=== PATIENT | male | born 1970 | race American Indian/Alaskan Native ===

== ENCOUNTER 2020-08-27 17:44 | Emergency (ER) | payer SELFPAY ==
--- NOTE | 2020-08-27 18:44 | Event Note ---
ED Screening Note Date of service: 08/27/20 Time: 18:43 ED Screening Note: 50-year-old -Greek male presents to the emergency room complaining of shortness of breath bilateral lower extremity edema x1 month.. Patient reports he went to the ER at [facility] on [facility] had blood work IV. Patient states he gave him prescription for Lasix but he did not get filled secondary to not knowing how much it would cost. Reports he has an appointment with his primary care provider on Saturday. This initial assessment/diagnostic orders/clinical plan/treatment(s) is/are subject to change based on patients health status, clinical progression and re- assessment by fellow clinical providers in the ED. Further treatment and workup at subsequent clinical providers discretion. Patient/guardian urged not to elope from the ED as their condition may be serious if not clinically assessed and managed. Initial orders include:
[2020-08-27 19:11] LABS: Basophils # (Auto) 0.1 K/mm3 (0.0-0.1); Basophils % (Auto) 0.9 % (0.0-1.8); Eosinophils # (Auto) 0.1 K/mm3 (0.0-0.4); Eosinophils % (Auto) 1.1 % (0.0-4.3); Hematocrit 30.1 % (35.5-45.6); Hemoglobin 10.4 gm/dl (11.8-15.2); Lymphocytes # (Auto) 1.2 K/mm3 (1.2-5.4); Lymphocytes % (Auto) 16.8 % (13.4-35.0); Mean Corpuscular HGB Conc 35 % (32-34); Mean Corpuscular Volume 88 fl (84-94); Monocytes # (Auto) 0.8 K/mm3 (0.0-0.8); Platelet Count 393 K/mm3 (140-440); Red Cell Distribution Width 13.9 % (13.2-15.2)
--- NOTE | 2020-08-27 19:20 | XRay Report ---
CHEST 2 VIEWS INDICATION / CLINICAL INFORMATION: sob,cough and rales. COMPARISON: None available. FINDINGS: SUPPORT DEVICES: None. HEART / MEDIASTINUM: No significant abnormality. LUNGS / PLEURA: Clear lungs. No significant pleural effusion. No pneumothorax. ADDITIONAL FINDINGS: No significant additional findings. IMPRESSION: 1. No significant abnormality of the chest. Signer Name: Los Mathur MD Signed: 08/27/2020 7:15 PM Workstation Name: [id number]
[2020-08-27 19:32] LABS: Alanine Aminotransferase 20 units/L (7-56); Albumin 3.5 g/dL (3.9-5); BUN/Creatinine Ratio 11; Blood Urea Nitrogen 15 mg/dL (9-20); Calcium 9.2 mg/dL (8.4-10.2); Hemolysis Index 0
[2020-08-27 20:51] VITALS: BP 138/83
--- NOTE | 2020-08-27 21:24 | Emergency Department Report ---
ED Extremity Problem HPI - General Chief complaint: Extremity Injury, Lower Stated complaint: FLUIDS ON LEGS/PAIN Time Seen by Provider: 08/27/20 20:50 Source: patient Mode of arrival: Ambulatory Limitations: No Limitations - History of Present Illness Initial comments: 50-year-old male presents to ED for bilateral lower extremity swelling x1 month. Patient states he has been seen at the [facility] ED twice. Patient states he was seen 1 week ago the ED by a [facility] physician who informed him that they would try to schedule an appointment with his PCP, Dr. Simms, at [facility]. He was told to return to the ED if he had not received a call from their office earlier this week. Patient states he did not receive a call for an appointment, so he returned to [facility] on yesterday. Patient states he was given a prescription for Lasix, that he has not yet filled. He reports he did not know that the Lasix was supposed to help recent swelling in his legs, so he did not get it filled. Patient presents to our ED tonight because his legs are still swollen and painful. Patient denies a history of CHF. Patient denies any chest pain or shortness of breath. Denies any fever. 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 Patient is currently under the care of a putty worker which he has a follow-up appointment with in 3 days. Patient reports he was admitted to [facility] in [facility] for Covid. He reports he was discharged toward the end of July. He states at that time he had ultrasound on his legs which were negative for blood clots. He reports he was being given antibiotics for cellulitis at that time. Patient states he was not discharged with any antibiotics and he is not currently on any antibiotic therapy. MD Complaint: extremity pain, extremity swelling -: month(s) (1) Location: bilateral lower extremity -: No fever, No associated dyspnea, No associated chest pain Quality: aching Consistency: constant Improves with: nothing Worsens with: palpation Associated Symptoms: denies: chest pain, shortness of breath, fever - Related Data Home Medications Medication Instructions Recorded Confirmed Last Taken Ibuprofen [Motrin] 800 mg PO BID 02/08/14 02/08/14 02/08/14 13:00 Previous Rx's Medication Instructions Recorded Last Taken Type HYDROcodone/APAP 7.5-325 [[place] 1 each PO Q6HR PRN #14 tablet 02/08/14 Unknown Rx 7.5/325 mg] Insulin Glargine,Hum.rec.anlog 30 units SQ HS #10 ml 02/08/14 Unknown Rx [Lantus] Sulfamethoxazole/Trimethoprim 1 each PO BID #20 tablet 02/08/14 Unknown Rx [Bactrim Ds] glipiZIDE [glipiZIDE XL] 20 mg PO DAILY #30 tab.er.24 02/08/14 Unknown Rx metFORMIN [Glucophage] 500 mg PO DAILY #60 tablet 02/08/14 Unknown Rx Sulfamethoxazole/Trimethoprim 1 each PO BID 7 Days #14 tablet 08/27/20 Unknown Rx [Bactrim DS TAB] cephALEXin [Keflex] 500 mg PO Q12HR 7 Days #14 cap 08/27/20 Unknown Rx traMADoL [Ultram] 50 mg PO Q6HR PRN #7 tablet 08/27/20 Unknown Rx Allergies Allergy/AdvReac Type Severity Reaction Status Date / Time No Known Allergies Allergy Unverified 02/08/14 13:55 ED Review of Systems ROS: Stated complaint: FLUIDS ON LEGS/PAIN Other details as noted in HPI Comment: All other systems reviewed and negative Constitutional: denies: chills, fever Respiratory: denies: shortness of breath Cardiovascular: denies: chest pain Musculoskeletal: as per HPI ED Past Medical Hx - Past Medical History Previous Medical History?: Yes Hx Congestive Heart Failure: No Hx Diabetes: Yes Additional medical history: Lower ext edema - Surgical History Past Surgical History?: Yes Additional Surgical History: orthro surgery on right - Social History Smoking Status: Never Smoker Substance Use Type: None - Medications Home Medications: Home Medications Medication Instructions Recorded Confirmed Last Taken Type HYDROcodone/APAP 7.5-325 [[place] 1 each PO Q6HR PRN #14 tablet 02/08/14 Unknown Rx 7.5/325 mg] Ibuprofen [Motrin] 800 mg PO BID 02/08/14 02/08/14 02/08/14 13:00 History Insulin Glargine,Hum.rec.anlog 30 units SQ HS #10 ml 02/08/14 Unknown Rx [Lantus] Sulfamethoxazole/Trimethoprim 1 each PO BID #20 tablet 02/08/14 Unknown Rx [Bactrim Ds] glipiZIDE [glipiZIDE XL] 20 mg PO DAILY #30 tab.er.24 02/08/14 Unknown Rx metFORMIN [Glucophage] 500 mg PO DAILY #60 tablet 02/08/14 Unknown Rx Sulfamethoxazole/Trimethoprim 1 each PO BID 7 Days #14 tablet 08/27/20 Unknown Rx [Bactrim DS TAB] cephALEXin [Keflex] 500 mg PO Q12HR 7 Days #14 cap 08/27/20 Unknown Rx traMADoL [Ultram] 50 mg PO Q6HR PRN #7 tablet 08/27/20 Unknown Rx ED Physical Exam - General Limitations: No Limitations General appearance: alert, in no apparent distress - Head Head exam: Present: atraumatic, normocephalic - Eye Eye exam: Present: normal appearance, EOMI - ENT ENT exam: Present: mucous membranes moist - Neck Neck exam: Present: normal inspection - Respiratory Respiratory exam: Present: normal lung sounds bilaterally. Absent: respiratory distress - Cardiovascular Cardiovascular Exam: Present: regular rate, normal rhythm - GI/Abdominal GI/Abdominal exam: Present: soft. Absent: distended, tenderness - Extremities Exam Extremities exam: Present: other (2+ pitting edema BLE; slight erythema to anterior aspect of BLE; open wound to left 2nd toe and left medial MTP area; BLE tender to palpation) ED Course Vital Signs 08/27/20 08/27/20 08/27/20 18:02 18:04 20:50 Temperature 98.9 F Pulse Rate 112 H 96 H Respiratory 20 16 Rate Blood Pressure 136/77 Blood Pressure 138/83 [Left] O2 Sat by Pulse 99 97 Oximetry ED Medical Decision Making - Lab Data Result diagrams: 08/27/20 18:56 08/27/20 18:56 - Radiology Data Radiology results: report reviewed, image reviewed - Medical Decision Making 50-year-old male presents to ED with bilateral lower extremity swelling x1 month. Patient denies any shortness of breath. He is in no respiratory distress. O2 sats are normal. Chest x-ray is negative for any acute abnormalities. On exam, patient has 2+ pitting edema to bilateral legs. There is some slight erythema present anteriorly. Ultrasound was done and is negative for DVT. Patient was given a prescription for Lasix on yesterday that he did not fill. I have instructed patient to fill his Lasix prescription. In a ddition, I will cover him for cellulitis with antibiotic prescriptions. Patient has follow-up appointment with his putty worker in 3 days. Additionally, I have advised him to contact his PCP instead of waiting for them to contact him. Return precautions given. Will discharge at this time. - Differential Diagnosis CHF, DVT, cellullitis Critical care attestation.: If time is entered above; I have spent that time in minutes in the direct care of this critically ill patient, excluding procedure time. ED Disposition Clinical Impression: Cellulitis of lower extremity Disposition: DC-01 TO HOME OR SELFCARE Is pt being admited?: No Condition: Stable Instructions: Cellulitis, Adult, [id number] Prescriptions: Sulfamethoxazole/Trimethoprim [Bactrim DS TAB] 1 each PO BID 7 Days #14 tablet cephALEXin [Keflex] 500 mg PO Q12HR 7 Days #14 cap traMADoL [Ultram] 50 mg PO Q6HR PRN #7 tablet PRN Reason: Pain Referrals: DAVY SIMMS JR, MD [Primary Care Provider] - 3-5 Days Time of Disposition: 22:42
--- NOTE | 2020-08-27 22:20 | Vascular Lab Report ---
DUPLEX DOPPLER LOWER EXTREMITY VEINS, BILATERAL INDICATION / CLINICAL INFORMATION: Bilateral lower extremity swelling. TECHNIQUE: Duplex doppler imaging was performed through the veins of both lower extremities using venous nathaly swathi and other maneuvers. COMPARISON: None available. FINDINGS: RIGHT COMMON FEMORAL VEIN: Negative. RIGHT FEMORAL VEIN: Negative. RIGHT POPLITEAL VEIN: Negative. RIGHT CALF VEINS: Negative. LEFT COMMON FEMORAL VEIN: Negative. LEFT FEMORAL VEIN: Negative. LEFT POPLITEAL VEIN: Negative. LEFT CALF VEINS: Negative. ADDITIONAL FINDINGS: There is mild bilateral leg edema. IMPRESSION: 1. No sonographic evidence for DVT in either lower extremity. 2. Mild bilateral leg edema. Signer Name: Los Mathur MD Signed: 08/27/2020 10:16 PM Workstation Name: [id number]
== END 2020-08-27 23:01 | disposition home or self-care (01) ==
LOC: ED 17:44
DX: L03.119 Cellulitis of unspecified part of limb (principal); E11.9 Type 2 diabetes mellitus without complications; Z79.899 Other long term (current) drug therapy; Z98.890 Other specified postprocedural states
CPT/HCPCS: 36415; 71046; 80053; 83880; 85025; 93970